=== PATIENT | female | born 1990 | race African-American/Black ===

== ENCOUNTER 2019-02-19 14:41 | Emergency (ER) | payer OTHER ==
[~2019-02-19] VITALS: Ht 167.6 cm; Wt 75.0 kg
[~2019-02-19 14:41] MED LIST: PREN1TAB19
[2019-02-19] MEDS ORDERED: MORPHINE SULFATE 4 MG/ML CPJ (NOT FOR IM USE) IV STA (18:52)
[2019-02-19] MEDS ORDERED: ONDANSETRON HCL 4MG/2ML INJ IV STA (18:52)
[2019-02-19] MEDS ORDERED: SODIUM CHLORIDE 0.9% 1,000 ML IV ONE ×2 (18:52)
[2019-02-19] MEDS ORDERED: IPRATROPIUM/ALBUTEROL 0.5-3(2.5)MG/3ML NEB HHN ONE (19:00)
[2019-02-19 19:25] LABS: BASOPHILS % 0.2 % (0.0-2.0); HEMOGLOBIN. 10.1 g/dL (12.0-16.0); LYMPHOCYTES % 13.1 % (20.0-50.0); MEAN CORPUSCULAR VOLUME 92.1 fL (81.0-99.0); MEAN PLATELET VOLUME 8.4 fl (7.4-10.4); MONOCYTES % 3.5 % (2.0-8.0); NEUTROPHILS % 83.2 % (40.0-76.0); PLATELET 344 x1000/uL (130-400); RED BLOOD CELL COUNT 3.26 mill/uL (4.2-5.4)
[2019-02-19 19:31] LABS: CHLORIDE 106 mEq/L (98-107)
[2019-02-19 19:34] LABS: INR 1.1; PARTIAL THROMBOPLASTIN TIME 25.4 sec (23.4-31.0); PROTHROMBIN TIME 11.4 sec (9.6-11.0)
[2019-02-19 19:35] LABS: ETHANOL BLOOD < 10 mg/dL
[2019-02-19 19:40] LABS: CREATINE KINASE 129 IU/L (26-192)
[2019-02-19 19:51] LABS: CLARITY URINE TURBID (CLEAR); COLOR URINE YELLOW (YELLOW); KETONES URINE TRACE (NEGATIVE); LEUKOCYTE ESTERASE URINE NEGATIVE (NEGATIVE); NITRITE URINE POSITIVE (NEGATIVE); OCCULT BLOOD URINE 2+ (NEGATIVE); PH URINE 5.5 (4.5-8.0); PROTEIN URINE NEGATIVE (NEGATIVE); SPECIFIC GRAVITY URINE 1.032 (1.005-1.030)
[2019-02-19 19:55] LABS: B-HCG QUANTITATIVE 2467 mIU/mL (<3)
[2019-02-19] MEDS ORDERED: CEFTRIAXONE 1 G PREMIX 50 ML IV ONE (20:30)
[2019-02-19] MEDS ORDERED: KETOROLAC 30MG/ML VIAL IV ONE (20:45)
[2019-02-19 20:58] LABS: *BENZODIAZEPINES SCREEN URINE NEGATIVE (NEGATIVE)
[2019-02-19 20:59] LABS: *AMPHETAMINES SCREEN URINE NEGATIVE (NEGATIVE); *BARBITURATES SCREEN URINE NEGATIVE (NEGATIVE); METHADONE URINE SCREEN NEGATIVE (NEGATIVE); OPIATES URINE SCREEN NEGATIVE (NEGATIVE); PHENCYCLIDINE URINE SCREEN NEGATIVE (NEGATIVE)
[2019-02-19 21:06] LABS: *COCAINE SCREEN URINE PRESUMTIVE POSITIVE (NEGATIVE); CANNABINOID URINE SCREEN PRESUMTIVE POSITIVE (NEGATIVE)
[2019-02-19 22:28] VITALS: BP 120/73
== END 2019-02-19 22:35 | disposition home or self-care (01) ==
LOC: ER 14:41
DX: O03.9 Complete or unspecified spontaneous abortion without complication (principal); O26.891 Other specified pregnancy related conditions, first trimester; E86.0 Dehydration; O23.41 Unspecified infection of urinary tract in pregnancy, first trimester; O99.321 Drug use complicating pregnancy, first trimester; F14.90 Cocaine use, unspecified, uncomplicated; F12.90 Cannabis use, unspecified, uncomplicated; O21.9 Vomiting of pregnancy, unspecified; O99.331 Smoking (tobacco) complicating pregnancy, first trimester; F17.210 Nicotine dependence, cigarettes, uncomplicated; Z3A.00 Weeks of gestation of pregnancy not specified; Z71.6 Tobacco abuse counseling
CPT/HCPCS: 36415; 76801; 76817; 80053; 80305; 80320; 81003; 81025; 82550; 83605; 83690; 83880; 84484; 84702; 85025; 85610; 85730; 86850; 86900; 86901; 87040; 87077; 87086; 87186; 93005; 94640; 96361; 96365; 96375; 99284; J0696; J1885; J2270; J2405; J7030; J7040; J7620; Z7610; G0480

== ENCOUNTER 2022-01-25 05:42 | Emergency (ER) | payer MEDICAID, OTHER ==
[~2022-01-25] VITALS: Ht 165.1 cm; Wt 53.0 kg
[2022-01-25 05:47] VITALS: BP 147/86
[2022-01-25] MEDS ORDERED: ONDANSETRON HCL 4MG/2ML INJ IV STA (05:50)
[2022-01-25] MEDS ORDERED: KETOROLAC 30MG/ML VIAL IV STA (05:50)
[2022-01-25] MEDS ORDERED: SODIUM CHLORIDE 0.9% 1,000 ML IV ONE (06:00)
[2022-01-25 06:28] LABS: CHLORIDE 108 mEq/L (98-107)
[2022-01-25 06:30] LABS: BASOPHILS % 0.5 % (0.0-2.0); EOSINOPHILS % 0.4 % (0.0-5.0); HEMATOCRIT. 36.9 % (36.0-48.0); HEMOGLOBIN. 12.3 g/dL (12.0-16.0); LYMPHOCYTES % 21.9 % (20.0-50.0); MEAN CORPUSCULAR HEMOGLOBIN 28.6 pg (28.0-32.0); MEAN CORPUSCULAR VOLUME 85.7 fL (81.0-99.0); MONOCYTES % 5.3 % (2.0-8.0); NEUTROPHILS % 71.9 % (40.0-76.0); PLATELET 343 x1000/uL (130-400); RED BLOOD CELL COUNT 4.31 mill/uL (4.2-5.4)
[2022-01-25 06:31] LABS: HCG SCREEN NEGATIVE
[2022-01-25] MEDS ORDERED: ONDA4TAB5 PO (07:35)
== END 2022-01-25 08:18 | disposition home or self-care (01) ==
LOC: ER 05:42
DX: R11.2 Nausea with vomiting, unspecified (principal); R19.7 Diarrhea, unspecified; R53.1 Weakness; G40.909 Epilepsy, unspecified, not intractable, without status epilepticus
CPT/HCPCS: 36415; 74176; 80053; 83690; 84703; 85025; 96361; 96374; 96375; 99284; J1885; J2405; J7030